=== PATIENT | male | born 1960 ===

== ENCOUNTER 2020-02-16 06:31 | Day surgery (SDC) | payer BC, OTHER ==
[~2020-02-16 06:31] MED LIST: Dextrose 5%-0.45% NaCl 1,000 ML IV SCH; Midazolam 1 MG/ML 2 ML SDV ONE; Sodium Chloride 0.9% 10 ML Syringe FLUSH PRN; fentaNYL 100 MCG/2 ML SDV ONE
[2020-02-16] MEDS ORDERED: Midazolam 1 MG/ML 2 ML SDV IV ONE ×5 (06:32→07:43)
[2020-02-16] MEDS ORDERED: fentaNYL 100 MCG/2 ML SDV IV ONE ×3 (06:32→07:38)
--- NOTE | 2020-02-16 10:14 | OR ---
DATE: 02/16/2020 PROCEDURE: Total colonoscopy. INSTRUMENT USED: [id number] Olympus video colonoscope. PREMEDICATIONS: Fentanyl 100 mcg intravenous, Versed 3 mg intravenous. Nasal O2 cannula. Procedure was done under pulse oximetry, BP recording, and panel monitor. INDICATIONS: Screening colonoscopic examination is done for detection of any polypoid lesions and removal, endoscopic hemostasis therapy if needed. DESCRIPTION OF PROCEDURE: Initial rectal exam was unremarkable. Rigid anoscopy showed small internal hemorrhoids without bleeding from them. The colonoscope was passed with ease. Scattered diverticula were noted in the distal left colon along with deformity. The scope was passed with ease up to the ileocecal area. Photographs were taken of the normal-appearing cecum identified by landmarks of appendiceal orifice and double-bulged ileocecal folds. No bleeding was noted from any of the visualized areas at the commencement of the examination. The bowel preparation was found to be adequate, [place] scale 3 in all the regions, total score 9. No stricture. No vascular ectasia. No large isolated ulcerations seen. No evidence of diffuse inflammatory bowel disease in the form of friability, contact bleeding, or ulcerations. No polyp or tumor mass identified. Probing the proximal sides of folds and flexures, using adequate distention and clearing up the stool material, withdrawal of the scope was made cecum to rectum time over 6 minutes. No bleeding was noted from any of the visualized areas at the completion of examination. IMPRESSION: 1. Internal hemorrhoids. 2. Diverticulosis. The patient tolerated the procedure well. [facility] /[id number]
== END 2020-02-16 09:55 | disposition home or self-care (01) ==
LOC: DL.ENDO 06:31
PROVIDERS: ATTEND Internal Medicine Gastroenterology
DX: Z12.11 Encounter for screening for malignant neoplasm of colon (principal); K64.8 Other hemorrhoids; K57.30 Diverticulosis of large intestine without perforation or abscess without bleeding; E66.09 Other obesity due to excess calories; I10 Essential (primary) hypertension; E78.5 Hyperlipidemia, unspecified; Z98.890 Other specified postprocedural states
CPT/HCPCS: 45378; J2250; J3010; J7042

== ENCOUNTER 2020-09-24 11:48 | Emergency (ER) | payer BC ==
[2020-09-24 12:48] LABS: ANION GAP 11.2 mEq/L (7-13); CHLORIDE,CL 98 mmol/L (98-107); SODIUM,NA 136 mmol/L (136-145)
--- NOTE | 2020-09-24 13:59 | EDM.PDOC ---
ED HPI GENERAL MEDICAL PROBLEM - General Chief Complaint: Cardiovascular Problem Time Seen by Provider: 09/24/20 13:45 Source of Information: Reports: Patient History Limitations: Reports: No Limitations - History of Present Illness INITIAL COMMENTS - FREE TEXT/NARRATIVE: This 60 yo male patient was brought to the ED by [facility] due to not feeling well (leg swelling, light headed). EMS reports his blood pressure was 170/103 upon their arrival. The patient was given IV Labetolol while in the ambulance. The patient reports feeling normal at the time of examination. The patient reports he normally takes his medications at noon (blood pressure medication and water pill), but has not take them yet. The patient admits that he may have eaten more salt than normal for him last night. The patient denies any chest pain or shortness of breath. Onset: Today Duration: Resolved Prior to Arrival Location: Reports: Generalized Quality: Reports: Other Severity: Moderate Improves with: Reports: None Worsens with: Reports: None Context: Reports: Other Associated Symptoms: Reports: Syncope (near) - Related Data Allergies Allergy/AdvReac Type Severity Reaction Status Date / Time No Known Allergies Allergy Verified 09/24/20 11:59 Home Meds: Home Meds Losartan [Cozaar] 50 mg PO DAILY 09/24/20 [History] amLODIPine Besylate [Amlodipine Besylate] 10 mg PO DAILY 09/24/20 [History] hydroCHLOROthiazide [Hydrochlorothiazide] 25 mg PO DAILY 09/24/20 [History] Past Medical History HEENT History: Reports: None Cardiovascular History: Reports: High Cholesterol, Hypertension Respiratory History: Reports: None Gastrointestinal History: Reports: None Genitourinary History: Reports: None Musculoskeletal History: Reports: None Neurological History: Reports: None Psychiatric History: Reports: None Endocrine/Metabolic History: Reports: Obesity/BMI 30+ Hematologic History: Reports: None Immunologic History: Reports: None Oncologic (Cancer) History: Reports: None Dermatologic History: Reports: None - Infectious Disease History Infectious Disease History: Reports: None - Past Surgical History Head Surgeries/Procedures: Reports: None HEENT Surgical History: Reports: Other (See Below) Other HEENT Surgeries/Procedures: nasal polyps surg Cardiovascular Surgical History: Reports: None Respiratory Surgical History: Reports: None GI Surgical History: Reports: Hernia Repair/Other Male Surgical History: Reports: None Endocrine Surgical History: Reports: None Musculoskeletal Surgical History: Reports: None Social & Family History - Caffeine Use Caffeine Use: Reports: Soda Caffeine Use Comment: 2-3 cans daily ED ROS GENERAL - Review of Systems Review Of Systems: Comprehensive ROS is negative, except as noted in HPI. ED EXAM, GENERAL - Physical Exam Exam: See Below Exam Limited By: No Limitations General Appearance: Alert, WD/WN, No Apparent Distress Eye Exam: Bilateral Eye: EOMI, Normal Inspection, PERRL Ears: Normal External Exam, Normal Canal, Hearing Grossly Normal, Normal TMs Nose: Normal Inspection, Normal Mucosa, No Blood Throat/Mouth: Normal Inspection, Normal Lips, Normal Teeth, Normal Gums, Normal Oropharynx, Normal Voice, No Airway Compromise Head: Atraumatic, Normocephalic Neck: Normal Inspection Respiratory/Chest: No Respiratory Distress, Lungs Clear, Normal Breath Sounds, No Accessory Muscle Use, Chest Non-Tender Cardiovascular: Normal Peripheral Pulses, Regular Rate, Rhythm, No Edema, No Gallop, No JVD, No Murmur, No Rub GI/Abdominal: Normal Bowel Sounds, Soft, Non-Tender, No Organomegaly, No Distention, No Abnormal Bruit, No Mass (Male) Exam: Deferred Rectal (Males) Exam: Deferred Back Exam: Normal Inspection, Full Range of Motion, NT Extremities: Normal Inspection, Normal Range of Motion, Non-Tender, Normal Capillary Refill, No Pedal Edema Neurological: Alert, Oriented, CN II-XII Intact, Normal Cognition, Normal Gait, Normal Reflexes, No Motor/Sensory Deficits Psychiatric: Normal Affect, Normal Mood Skin Exam: Warm, Dry, Intact, Normal Color, No Rash Lymphatic: No Adenopathy Course - Vital Signs Last Recorded V/S: Last Vital Signs Temp 98.2 F 09/24/20 11:50 Pulse 81 09/24/20 11:50 Resp 16 09/24/20 11:50 BP 157/87 H 09/24/20 11:50 Pulse Ox 96 09/24/20 11:50 - Orders/Labs/Meds Orders: Active Orders 24 hr Category Date Time Status EKG Documentation Completion [RC] STAT Care 09/24/20 11:58 Ordered Labs: Laboratory Tests 09/24/20 09/24/20 Range/Units 12:20 12:20 WBC 6.5 (5.0-10.0) 10^3/uL RBC 4.63 (4.6-6.2) 10^6/uL Hgb 14.5 (14.0-18.0) g/dL Hct 42.0 (40.0-54.0) % MCV 90.7 (80-100) fL MCH 31.3 (27.0-34.0) pg MCHC 34.5 (33.0-35.0) g/dL Plt Count 231 (150-450) 10^3/uL Neut % (Auto) 72.0 (42.2-75.2) % Lymph % (Auto) 12.7 L (20.5-50.1) % [place] % (Auto) 13.3 H (2-8) % Eos % (Auto) 1.4 (1.0-3.0) % Baso % (Auto) 0.6 (0.0-1.0) % Sodium 136 (136-145) mmol/L Potassium 3.2 L (3.5-5.1) mmol/L Chloride 98 (98-107) mmol/L Carbon Dioxide 30 (21-32) mmol/L Anion Gap 11.2 (7-13) mEq/L BUN 12 (7-18) mg/dL Creatinine 0.83 (0.70-1.30) mg/dL Est Cr Clr Drug Dosing 80.27 mL/min Estimated GFR (MDRD) > 60 BUN/Creatinine Ratio 14.5 (No establ ref range) Glucose 173 H (70-99) mg/dL Calcium 8.5 (8.5-10.1) mg/dL Total Bilirubin 0.4 (0.2-1.0) mg/dL AST 21 (15-37) U/L ALT 51 (16-63) U/L Alkaline Phosphatase 60 (46-116) U/L Troponin I High Sens 5 (<=76) pg/mL B-Natriuretic Peptide 6 (0-100) pg/ml Total Protein 6.5 (6.4-8.2) g/dL Albumin 3.7 (3.4-5.0) g/dL Globulin 2.8 Albumin/Globulin Ratio 1.3 Departure - Departure Time of Disposition: 14:00 Disposition: Home, Self-Care 01 Condition: Fair Clinical Impression: Near syncope, Hypertension Instructions: Near-Syncope, [id number], Hypertension, Adult Care Plan Goals: The patient was advised of the examination, lab and EKG results during the visit. The patient was given blood pressure medications by EMS prior to arrival in the ED. The patient was advised not to take his blood pressure medications today. The patient was encouraged to reduce his oral salt intake. The patient should follow-up with his primary care facility for continued evaluation and management of his blood pressure. If the patient has any additional symptoms or concerns, the patient should either return to the emergency department or visit his primary care facility. Sepsis Event Note (ED) - Evaluation Sepsis Screening Result: No Definite Risk - Focused Exam Vital Signs: Vital Signs Temp Pulse Resp BP Pulse Ox 09/24/20 11:50 98.2 F 81 16 157/87 H 96 - My Orders Last 24 Hours: My Active Orders 09/24/20 11:58 EKG Documentation Completion [RC] STAT - Assessment/Plan Last 24 Hours: My Active Orders 09/24/20 11:58 EKG Documentation Completion [RC] STAT
== END 2020-09-24 14:10 | disposition home or self-care (01) ==
LOC: DL.ED 11:48
DX: R55 Syncope and collapse (principal); I10 Essential (primary) hypertension; E66.9 Obesity, unspecified; Z68.30 Body mass index [BMI] 30.0-30.9, adult; Z79.899 Other long term (current) drug therapy
CPT/HCPCS: 36415; 80053; 83880; 84484; 85025; 93005; 99283; 99284-25